=== PATIENT | male | born 1985 | race African-American/Black ===

== ENCOUNTER 2018-07-26 09:57 | Emergency (ER) ==
[~2018-07-26] VITALS: Ht 182.9 cm; Wt 81.6 kg
--- NOTE | 2018-07-26 10:13 | NUR ---
PT BROUGHT IN BY [employer] PLACED ON [address] HOLD FOR [employer] WITH A PLAN FOUND ON [employer] [place] TELLING POLICE TO JUST SHOT HIM. PT UNDRESSED BY [employer] WHO ARE AT BEDSIDE WILL CONTINUE TO MONITOR
[2018-07-26 10:33] LABS: BASOPHILS % (AUTO) 0.8 % (0.0-2.0); EOSINOPHILS % (AUTO) 4.9 % (0.0-6.0); HEMATOCRIT 43 % (39-51); HEMOGLOBIN 14.6 g/dL (13.5-17.5); LYMPHOCYTES # (AUTO) 1.8 /CMM (0.8-4.8); MEAN CORPUSCULAR HGB CONC 34 g/dl (31.0-36.0); MEAN CORPUSCULAR VOLUME 90 fL (80-96); MONOCYTES # (AUTO) 0.3 /CMM (0.1-1.30); MONOCYTES % (AUTO) 6.7 % (2.0-12.0); NEUTROPHILS # (AUTO) 2.3 /CMM (1.8-8.9); NEUTROPHILS % (AUTO) 48.6 % (43.0-81.0); PLATELET COUNT (AUTO) 282 /CMM (150-450); WHITE BLOOD COUNT (AUTO) 4.7 K/uL (4.3-11.0)
[2018-07-26 10:40] LABS: CALCIUM, SERUM 7.7 mg/dL (8.5-10.1); CARBON DIOXIDE 29 mmol/L (21-32); CHLORIDE 110 mmol/L (98-107); CREATININE 0.9 mg/dL (0.6-1.3); GLUCOSE 100 mg/dL (74-106); POTASSIUM 3.9 mmol/L (3.5-5.1); SODIUM SERUM 147 mmol/L (136-145); UREA NITROGEN, BLOOD 10 mg/dL (7-18)
[2018-07-26 10:54] LABS: ALANINE AMINOTRANSFERASE 31 U/L (12-78); ALBUMIN 3.6 g/dL (3.4-5.0); ALCOHOL, BLOOD 196 mg/dL (0-0); ALKALINE PHOSPHATASE 57 U/L (46-116); ASPARTATE AMINOTRANSFERASE 26 U/L (15-37); BILIRUBIN,DIRECT 0.1 mg/dL (0.0-0.2); BILIRUBIN,TOTAL 0.2 mg/dL (0.2-1.0); TOTAL PROTEIN, SERUM 7.3 g/dL (6.4-8.2)
[2018-07-26 10:55] LABS: ACETAMINOPHEN < 2 ug/ml (10-30); SALICYLATE 0.8 mg/dL (2.8-20.0)
[2018-07-26] MEDS ORDERED: IV NS 0.9% 1,000 ML BAG IV ONE (11:00)
--- NOTE | 2018-07-26 15:12 | NUR ---
PT REMAINS CALM WAITING PLACEMENT
--- NOTE | 2018-07-26 16:29 | NUR ---
PT GIVEN URINAL AND SAMPLE SENT TO LAB
[2018-07-26 16:32] LABS: APPEARANCE,URINE Clear (CLEAR); BILIRUBIN,URINE Negative (NEGATIVE); BLOOD, URINE Negative Ery/uL (NEGATIVE); COLOR,URINE Yellow (YELLOW); KETONES,URINE Negative (NEGATIVE); LEUKOCYTE ESTERASE ,URINE Negative (NEGATIVE); NITRITE, URINE Negative (NEGATIVE); PROTEIN,URINE Negative (NEGATIVE); UGLUCOSE Negative (NEGATIVE); UROBILINOGEN,URINE 0.2 EU/dL (0.2)
--- NOTE | 2018-07-26 17:27 | NUR ---
PT GIVEN DINNER TRAY ATE 100%
--- NOTE | 2018-07-26 18:01 | NUR ---
CALLED CASTER OPERATOR SAWMILL HAND MANNY LEFT VOICEMAIL
--- NOTE | 2018-07-26 18:50 | NUR ---
CRISIS TEAM HERE TO EVALUATE PT FOR PLACEMENT.
--- NOTE | 2018-07-26 18:59 | NUR ---
AFTER CRISIS TEAM EVALUAION PLACEMENT STARTED IF NOT PT TO SEE FILING AND POLISHING SUPERVISOR IN AM PT HOMELESS.
--- NOTE | 2018-07-26 19:23 | NUR ---
RECEIVED REPORT FROM OMER MILLER FOR [facility]. PT IS AAOX4, NOT IN RESPIRTORY DISTRESS, V/S STABLE, KEPT RESTED AND COMFORTABLE, WAITING TRANSFER.
--- NOTE | 2018-07-26 19:30 | NUR ---
SEEN AND EXAMINED BY MANNY MITCHELL, AWAITING CALL BACK FROM [facility].
--- NOTE | 2018-07-26 20:01 | NUR ---
PT BLOODDRAW FOR REPEAT ALCOHOL LEVEL.
--- NOTE | 2018-07-26 21:19 | NUR ---
[facility] ACCEPTED THE PT, REPORT TO [phone] EX:[id number]
--- NOTE | 2018-07-26 21:20 | NUR ---
ETA [id number]
--- NOTE | 2018-07-26 21:24 | NUR ---
REPORT GIVEN TO OMER VÁZQUEZ OF [facility].
[2018-07-26 22:03] VITALS: BP 140/87
--- NOTE | 2018-07-26 22:03 | NUR ---
REPORT GIVEN TO EMT FOR PT TRANSFER TO [facility].
== END 2018-07-26 22:04 ==
LOC: ER 10:04
DX: R45.851 Suicidal ideations (principal)
CPT/HCPCS: 36415; 80048; 80076; 80305; 80307 ×2; 80329; 81001; 85025; 99285; G0480; J7030; 81000-TC